=== PATIENT | female | born 1980 | race American Indian/Alaskan Native ===

== ENCOUNTER 2018-06-09 21:04 | Emergency (ER) | payer SELFPAY ==
[2018-06-09 21:29] VITALS: BP 130/90
[2018-06-09 23:08] LABS: Bacteria,Urine 1+ /HPF (Negative); Bilirubin,Urine NEG (Negative); Blood,Urine MOD (Negative); Color,Urine Yellow (Yellow); Mucus,Urine 2+ /HPF
[2018-06-09 23:27] LABS: HCG Qualitative,Urine Negative (Negative)
[2018-06-10] MEDS ORDERED: NAPROSYN PO ONE (00:07)
--- NOTE | 2018-06-10 00:07 | Emergency Department Report ---
ED Abdominal Pain HPI - General Chief Complaint: Abdominal Pain Stated Complaint: STD CHECK Time Seen by Provider: 06/09/18 23:27 Source: patient, EMS Mode of arrival: Ambulatory Limitations: No Limitations - History of Present Illness Initial Comments: This is a 38-year-old female here report that she is having abdominal pain and and put into her pelvic area. She said this started 3 days ago. She said her last cycle was May 03. Pain is 10 out of 10 and crampy and comes and goes. Denies any nausea or vomiting. Denies any fever or chills. Denies any back pain. Denies any urinary burning, frequency or urgency. Denies any vaginal bleeding or discharge. She is also requesting STD check because she thinks she has STD or she is . No alleviating or exacerbating factors for pain. No medication taken prior to coming to the hospital MD Complaint: abdominal pain Onset/Timin -: hour(s) Location: suprapubic Radiation: none Migration to: no migration Severity: severe Severity scale (0 -10): 10 Quality: cramping Consistency: intermittent Improves With: nothing Worsens With: nothing Context: other (possible or STD) Associated Symptoms: denies: nausea, vomiting, diarrhea, fever, chills, constipation, dysuria, hematemesis, hematochezia, melena, hematuria, anorexia, syncope Treatments Prior to Arrival: other (none) - Related Data LMP Date: 05/03/18 Previous Rx's Medication Instructions Recorded Last Taken Type Acetaminophen/Codeine [Tylenol #3] 1 tab PO Q6H PRN #20 tab 07/24/15 Unknown Rx Cyclobenzaprine [Flexeril] 10 mg PO TID PRN #20 tablet 07/24/15 Unknown Rx Ibuprofen [Motrin 800 MG tab] 800 mg PO Q8HR PRN #30 tablet 07/24/15 Unknown Rx Naproxen [Naprosyn] 500 mg PO BID PRN #12 tablet 06/10/18 Unknown Rx cephALEXin [Keflex] 500 mg PO Q8HR 7 Days #14 cap 06/10/18 Unknown Rx Allergies Allergy/AdvReac Type Severity Reaction Status Date / Time No Known Allergies Allergy Unverified 07/24/15 14:45 ED Review of Systems ROS: Stated complaint: STD CHECK Other details as noted in HPI Constitutional: denies: chills, fever ENT: denies: throat pain Respiratory: denies: cough, shortness of breath, wheezing Cardiovascular: denies: chest pain, palpitations, edema, syncope Gastrointestinal: abdominal pain. denies: nausea, vomiting, diarrhea, consti pation, hematemesis, melena, hematochezia Genitourinary: abnormal menses, other (concern for STD). denies: urgency, dysuria, frequency, hematuria, discharge, dyspareunia Musculoskeletal: denies: back pain, arthralgia, myalgia Skin: denies: rash Neurological: denies: headache ED Past Medical Hx - Past Medical History Previous Medical History?: No - Surgical History Past Surgical History?: No - Family History Family history: hypertension - Social History Smoking Status: Never Smoker Substance Use Type: None - Medications Home Medications: Home Medications Medication Instructions Recorded Confirmed Last Taken Type Acetaminophen/Codeine [Tylenol #3] 1 tab PO Q6H PRN #20 tab 07/24/15 Unknown Rx Cyclobenzaprine [Flexeril] 10 mg PO TID PRN #20 tablet 07/24/15 Unknown Rx Ibuprofen [Motrin 800 MG tab] 800 mg PO Q8HR PRN #30 tablet 07/24/15 Unknown Rx Naproxen [Naprosyn] 500 mg PO BID PRN #12 tablet 06/10/18 Unknown Rx cephALEXin [Keflex] 500 mg PO Q8HR 7 Days #14 cap 06/10/18 Unknown Rx ED Physical Exam - General Limitations: No Limitations General appearance: alert, in no apparent distress - Head Head exam: Present: atraumatic, normal inspection - Eye Eye exam: Present: normal appearance, PERRL, EOMI - ENT ENT exam: Present: normal exam, normal orophraynx, mucous membranes moist - Neck Neck exam: Present: normal inspection, full ROM. Absent: tenderness, lymphad enopathy - Respiratory Respiratory exam: Present: normal lung sounds bilaterally. Absent: respiratory distress, chest wall tenderness - Cardiovascular Cardiovascular Exam: Present: normal rhythm, tachycardia, normal heart sounds - GI/Abdominal GI/Abdominal exam: Present: soft, normal bowel sounds. Absent: distended, tenderness, guarding, rebound, rigid, organomegaly, mass - Extremities Exam Extremities exam: Present: normal inspection, full ROM, normal capillary refill, other (No cce. + 2 pulses in all extremities, no neurovascular compromise). Absent: tenderness, pedal edema, joint swelling - Back Exam Back exam: Present: normal inspection, full ROM, other (ambulates without any difficulties). Absent: tenderness, CVA tenderness (R), CVA tenderness (L), rash noted - Neurological Exam Neurological exam: Present: alert, oriented X3, normal gait - Psychiatric Psychiatric exam: Present: normal affect, normal mood - Skin Skin exam: Present: warm, dry, intact, normal color. Absent: rash ED Course Vital Signs 06/09/18 06/10/18 21:25 00:21 Temperature 98.2 F Pulse Rate 105 H 98 H Respiratory 16 Rate Blood Pressure 130/90 [Left] O2 Sat by Pulse 100 Oximetry - Reevaluation(s) Reevaluation #1: 06/10/18 00:11 Patient and to receive naproxen 500 mg by mouth for pelvic cramping ED Medical Decision Making - Lab Data Lab Results 06/09/18 Range/Units 22:14 Urine Color Yellow (Yellow) Urine Turbidity Slightly-cloudy (Clear) Urine pH 5.0 (5.0-7.0) Ur Specific Earp 1.026 (1.003-1.030) Urine Protein 30 mg/dl (Negative) mg/dL Urine Glucose (UA) Neg (Negative) mg/dL Urine Ketones 20 (Negative) mg/dL Urine Blood Mod (Negative) Urine Nitrite Neg (Negative) Urine Bilirubin Neg (Negative) Urine Urobilinogen 2.0 (<2.0) mg/dL Ur Leukocyte Esterase Mod (Negative) Urine WBC (Auto) 29.0 H (0.0-6.0) /HPF Urine RBC (Auto) 11.0 (0.0-6.0) /HPF U Epithel Cells (Auto) 3.0 (0-13.0) /HPF Urine Bacteria (Auto) 1+ (Negative) /HPF Urine Mucus 2+ /HPF Urine HCG, Qual Negative (Negative) Urine culture sent - Medical Decision Making This is a 38-year-old female here report that she is having pelvic cramping for 2 days and she has not had her period since 05/03/2018. She states she is concerned for STD due to abdominal pain. Patient urinalysis shows positive white count, moderate leukocyte Estrace, positive bacteria and moderate blood and appearance cloudy. Urine culture sent. test is negative. Patient is not having any vaginal discharge she thought that she might of had STD because she was having cramping and. I discussed urinalysis and test the patient and she voiced understanding. Patient will get naproxen 500 mg by mouth prior to discharge and I discussed with her that she needs to follow up with her primary care in 7-10 days to have repeat urinalysis or return to the emergency room if her symptoms return. Patient was given a prescription for Keflex and naproxen - Differential Diagnosis abdominal pain in , UTI, Critical care attestation.: If time is entered above; I have spent that time in minutes in the direct care of this critically ill patient, excluding procedure time. ED Disposition Clinical Impression: Acute cystitis with hematuria, Pelvic cramping Oligomenorrhea, unspecified Qualifiers: Oligomenorrhea type: unspecified type Qualified Code(s): N91.5 - Oligomenorrhea, unspecified Disposition: TO HOME OR SELFCARE Is pt being admited?: No Does the pt Need Aspirin: No Condition: Stable Instructions: Urinary Tract Infection in Women (ED), Abdominal Pain (ED) Additional Instructions: Please follow-up with [facility] regarding abnormal menstrual cycle. Please increase her fluid intake to 2-3 L of water daily to help flush your bladder out due to urinary tract infection Take naproxen for pelvic pain and take this medication with food as it can cause stomach upset and take Keflex for urinary tract infection. Follow-up with [facility] or primary care in 7-10 days to have repeat urinalysis If you symptoms return, return to the emergency room otherwise follow-up with [facility]. Referrals: LAM CISNEROS MD [Primary Care Provider] - 3-5 Days [facility] [Outside] - 3-5 Days [facility] [Provider Group] - 3-5 Days Forms: Work/School Release Form(ED)
[2018-06-10] MEDS ORDERED: KEFLEX PO ONE (00:17)
== END 2018-06-10 00:38 | disposition home or self-care (01) ==
LOC: ED 21:04
DX: N30.01 Acute cystitis with hematuria (principal); N91.5 Oligomenorrhea, unspecified
CPT/HCPCS: 81001; 81025; 87086; 99283